=== PATIENT | female | born 1975 | race Caucasian/White ===

== ENCOUNTER → 2016-09-24 | Outpatient (CLI) | payer OTHER ==
[~2016-09-24] MED LIST: BUPR-197 PO; NAPR550 PO; PHEN37.5 PO; PHEN37.52 PO
--- NOTE | 2016-09-25 14:17 | EKG ---
Date Performed: 09/24/2016 Time Performed: 13:10:36 PTAGE: 40 years EKG: Sinus rhythm NORMAL ECG NO PREVIOUS TRACING DOCTOR: Escobar Salguero Interpretating Date/Time 09/25/2016 14:16:56
== END ==
LOC: CPRE 12:53
PROVIDERS: ATTEND Obstetrics & Gynecology
DX: Z01.810 Encounter for preprocedural cardiovascular examination (principal); N92.0 Excessive and frequent menstruation with regular cycle; N94.6 Dysmenorrhea, unspecified; D39.0 Neoplasm of uncertain behavior of uterus; N83.01 Follicular cyst of right ovary
CPT/HCPCS: 93005

== ENCOUNTER 2016-09-30 12:14 | Observation (INO) | payer OTHER ==
--- NOTE | 2016-09-29 08:52 | MH ---
cc: MITUL MALHOTRA DATE OF ADMISSION 09/30/2016 ADMISSION DIAGNOSIS Dysmenorrhea with uterine fibroids and recurrent menorrhagia. HISTORY OF PRESENT ILLNESS The patient is a 40-year-old white female para 2-0-0-2 who had tubal ligation and endometrial inflation in May of 2015. She had a temporary reduction in menstrual flow, but persistent dysmenorrhea. Her laboratory studies from 08/19/16 were normal. Her vaginal ultrasound from 08/19/16 showed a uterus that measured 9.5 cm with lower uterine fibroids. The ovaries showed a small cyst on the right, left was normal. She is now admitted for hysterectomy. ADDITIONAL PAST MEDICAL HISTORY 1. T&A in childhood 2. third molars 3. LEEP procedure in 1995. MEDICATIONS Medications are Vitamins. ALLERGIES CIPRO TRANSFUSIONS None OBSTETRICAL HISTORY One vaginal delivery in 2007 and with tubal in 2010. SOCIAL HISTORY She is works for the [employer]. She is . Alcohol occasional, tobacco none, drugs none. FAMILY HISTORY Her family history is noncontributory. PHYSICAL EXAM This is a well-nourished well-developed white female. VITAL SIGNS: Stable. HEENT: Exam is normal. CHEST: Clear. HEART: Regular rate. BREASTS: Symmetrical. ABDOMEN: Benign. PELVIC: Normal external genitalia and BUS. Vagina is normal cervix is normal. Uterus is about 12 weeks' size. Adnexa nonpalpable. ASSESSMENT As above. PLAN She is admitted for laparoscopy with planned LASH procedure with ovarian and cervical sparing if normal. While in the office, I explained the procedures, the risks, benefits and complications and the patient would like to proceed. MD ISABELL Meneses/STAN /8:26 AM /8:41 AM
[~2016-09-30] VITALS: Ht 154.9 cm; Wt 99.7 kg
[~2016-09-30 12:14] MED LIST changes: +BUPIVACAINE LIPOSOME PF 1.3% 20 ML VIAL ONE; -BUPR-197 PO; +KETOROLAC TROMETHAMINE 60 MG/2 ML (IM) VIAL IM ONE; +LACTATED RINGER'S 1000 ML INJ 2,000 ML IV ONE; -NAPR550 PO; +NEOSTIGMINE 3 MG/3 ML SYR IV ONE; +ONDANSETRON HCL 4 MG/2 ML VIAL IV PUSH ONE; -PHEN37.5 PO; +PHENYLEPH/NS 1000 MCG/10 ML SYR IV ONE; +PROPOFOL 200 MG/20 ML AMP IV ONE; +ePHEDrine/NS 25 MG/5 ML SYR IV ONE
[2016-09-30] MEDS ORDERED: POVIDONE IODINE 5% (ANTISEPSIS KIT) 4 APPLICATIONS EACH NARE PRN (12:45)
[2016-09-30] MEDS ORDERED: INSULIN HUMAN REGULAR 1,000 UNITS/10 ML VIAL SQ PRN (12:45)
[2016-09-30] MEDS ORDERED: METOPROLOL TARTRATE 25 MG TAB PO PRN (12:45)
[2016-09-30] MEDS ORDERED: SODIUM CHLORID 0.9% 500 ML IV PRN (12:45)
[2016-09-30] MEDS ORDERED: CHLORHEXIDINE GLUCONATE 2 % 1 PACK (2 CLOTHS) TOPICAL PRN (12:45)
[2016-09-30] MEDS ORDERED: LACTATED RINGER'S 1000 ML IV PRN (12:45)
[2016-09-30 12:57] VITALS: BP 143/77; PULSE 76; RESP 20; TEMP 98.7; O2SAT 98
[2016-09-30] MEDS ORDERED: ceFAZolin 2 GM PREMIX 50 ML IV SCH (13:00)
[2016-09-30] MEDS ORDERED: ACETAMINOPHEN 1000 MG/100 ML VIAL IV SCH (13:00)
[2016-09-30] MEDS ORDERED: BUPIVACAINE/EPINEPHRINE 0.5% PF 30 ML VIAL ONE (14:04)
[2016-09-30] MEDS ORDERED: FAMOTIDINE 20 MG/2 ML VIAL ONE (14:32)
[2016-09-30] MEDS ORDERED: MIDAZOLAM HCL 2 MG/2 ML VIAL ONE (14:32)
[2016-09-30] MEDS ORDERED: APREPITANT 40 MG CAP ONE (14:32)
[2016-09-30] MEDS ORDERED: DEXAMETHASONE SOD PHOS 4 MG/ML VIAL ONE (14:32)
[2016-09-30] MEDS ORDERED: SODIUM CHLORIDE 0.9% FLUSH 5 ML FLUSH FLUSH PRN (16:45)
[2016-09-30] MEDS: KETOROLAC TROMETHAMINE 30 MG/ML (IVP) VIAL IVP SCH (16:45)
[2016-09-30] MEDS ORDERED: DO NOT ADM ANY ANTICOAGULANT DRUGS PRN (17:04)
[2016-09-30] MEDS ORDERED: fentaNYL CITRATE 250 MCG/5 ML AMP ONE (17:08)
[2016-09-30] MEDS ORDERED: *morphine SULFATE 8 MG/ML PERIprocedure ONLY ONE (17:26)
[2016-09-30] MEDS: D5-1/2 NS + KCL 20 MEQ INJ 1,000 ML IV SCH (17:35)
[2016-09-30] MEDS: ACETAMINOPHEN 1000 MG/100 ML VIAL IV SCH (17:41)
[2016-09-30] MEDS ORDERED: HYDROmorphone HCL PF 1 MG/ML VIAL IV PRN (18:00)
[2016-09-30] MEDS ORDERED: diphenhydrAMINE HCL 25 MG CAP PO PRN (18:00)
[2016-09-30] MEDS ORDERED: hydrOXYzine PAMOATE 25 MG CAP PO PRN (18:00)
[2016-09-30] MEDS ORDERED: PROMETHAZINE HCL 25 MG TAB PO PRN (18:00)
[2016-09-30] MEDS ORDERED: ZOLPIDEM TARTRATE 5 MG TAB PO PRN (18:00)
[2016-09-30] MEDS ORDERED: ONDANSETRON HCL 4 MG/2 ML VIAL IV PRN (18:00)
[2016-09-30] MEDS ORDERED: ONDANSETRON ODT 4 MG TAB PO PRN (18:00)
[2016-09-30] MEDS ORDERED: *ONDANSETRON 4 MG VIAL PERIprocedural Use ONLY ONE (18:09)
[2016-09-30 18:13] LABS: HEMATOCRIT 34.6 % (35.0-46.0); REVIEW FLAG FINAL
[2016-09-30 18:30] VITALS: O2SAT 96
[2016-09-30 20:00] VITALS: BP 109/68; PULSE 65; RESP 18; TEMP 98
[2016-09-30] MEDS: DOCUSATE SODIUM 100 MG CAP PO SCH (20:16)
[2016-09-30] MEDS ORDERED: SODIUM CHLORIDE 0.9% FLUSH 5 ML FLUSH FLUSH SCH (21:00)
[2016-10-01 00:20] VITALS: BP_SYST 105; BP_SYST 109; BP_DIAS 66; BP_DIAS 68; PULSE 65; RESP 16; TEMP 98
[2016-10-01] MEDS: KETOROLAC TROMETHAMINE 30 MG/ML (IVP) VIAL IVP SCH ×2 (00:32→07:18)
[2016-10-01] MEDS: D5-1/2 NS + KCL 20 MEQ INJ 1,000 ML IV SCH (01:40)
[2016-10-01] MEDS: ACETAMINOPHEN 1000 MG/100 ML VIAL IV SCH (01:47)
[2016-10-01 03:56] VITALS: BP 104/69; PULSE 64; RESP 18; TEMP 98.2
[2016-10-01 05:59] LABS: AUTOMATED NEUTROPHIL # 11.5 TH/MM3 (1.8-7.7); BASOPHIL % 0.1 % (0.0-2.0); EOSINOPHIL % 0.1 % (0.0-4.0); HEMATOCRIT 30.8 % (35.0-46.0); HEMO FLAGS DIFF FINAL; LYMPH % 5.8 % (9.0-44.0); LYMPHOCYTE # 0.8 TH/MM3 (1.0-4.8); MEAN CELL VOLUME 87.3 FL (80.0-100.0); MEAN CORPUSCULAR HEMOGLOBIN 29.6 PG (27.0-34.0); MEAN CORPUSCULAR HGB CONC 33.9 % (32.0-36.0); MONO % 5.2 % (0.0-8.0); NEUT % 88.8 % (16.0-70.0); PLATELET COUNT 208 TH/MM3 (150-450); RED BLOOD COUNT 3.53 MIL/MM3 (4.00-5.30); RED CELL DISTRIBUTION WIDTH 12.3 % (11.6-17.2)
[2016-10-01 06:21] LABS: BICARBONATE 23.2 MEQ/L (21.0-32.0); POTASSIUM 4.3 MEQ/L (3.5-5.1)
[2016-10-01] MEDS: DOCUSATE SODIUM 100 MG CAP PO SCH (07:17)
[2016-10-01 08:00] VITALS: BP 108/67; PULSE 80; RESP 18; TEMP 98.2
--- NOTE | 2016-10-01 08:23 | HHI.DCPOC ---
Discharge Care Plan Report Symptoms to Your Doctor -Temperature above 100.5 degrees -Redness, of incision or excessive or foul smelling drainage -Unusual pain or calf pain -Increased vaginal bleeding -Painful or difficulty urinating -Feelings of extreme sadness or anxiety after 2 weeks Goals to Promote Your Health * To prevent worsening of your condition and complications * To maintain your health at the optimal level Directions to Meet Your Goals Take your medications as prescribed Follow your dietary instruction Follow activity as directed Ensure plenty of rest for recovery Drink fluids for hydration Keep your appointments as scheduled Take your immunizations and boosters as scheduled If your symptoms worsen call your PCP, if no PCP go to Urgent Care Center or Emergency Room Smoking is Dangerous to Your Health. Avoid second hand smoke Call the 24-hour crisis hotline for domestic abuse at Byron Jaime MD Oct 01, 2016 08:23
--- NOTE | 2016-10-02 13:58 | MP ---
cc: MITUL MALHOTRA DATE OF SURGERY: 09/30/2016 PREOPERATIVE DIAGNOSIS Dysmenorrhea with uterine fibroids. POSTOPERATIVE DIAGNOSIS Dysmenorrhea with uterine fibroids. PROCEDURE LASH, bilateral salpingectomy. ANESTHESIA General endotracheal. SURGEON Mitul Malhotra MD MARINE DRAFTER BEN Prince ESTIMATED BLOOD LOSS 200 cc. FLUIDS 1.6 liters crystalloid. OBJECTIVE FINDINGS Following the induction of adequate general endotracheal anesthesia the patient was prepped and draped supine on the operating table in the dorsal lithotomy position in the usual sterile fashion with the bladder being drained via Saha catheterization. The abdomen was opened through a 3 cm curving infraumbilical incision using a knife to cut down from the skin to the fascia. The fascia was opened transversely. The rectus muscle was split in the midline and the peritoneum opened sharply. Palpation was normal. A GelPort was placed, laparoscope inserted. A 5 port was placed in the left lower quadrant and an Airsealport in the right lower quadrant. The uterus was about 12 weeks' size with fibroids. Both tubes showed interruption. The ovaries were normal. The cul-de-sacs were clear. Working first on the left a Harmonic scalpel was used to take the left uteroovarian pedicle, left round ligament, left broad ligament, left side of the bladder flap and uterine vessels, the same on the right. A harmonicscalpel was now used to amputate the fundus from the cervix and the fundus inserted into a pouch and extracted through the GelPort site intact. Residual tube remnants were removed with the Harmonic scalpel and extracted through the GelPort. Irrigation was performed. One area of bleeding on the right broad ligament was sutured with 2-0 Vicryl quill stitch. The ureters were inspected with good peristalsis. There was No further bleeding. Low pressures were done with no bleeding. The operative site was coated with Evicel. The GelPort was removed. The peritoneum was sutured with running 2-0 Vicryl, the fascia with a running locking stitch of 0 Vicryl, subcu with running 3-0 Vicryl and skin with running subcuticular 3-0 Monocryl. Dermabond was applied. The scope was now reinserted in the lower ports and inspected. The GelPort site was well-closed. No operative bleeding was seen. The scope was removed, gas was allowed to escape. The small wounds were closed with 3-0 Monocryl. Dermabond was applied. All counts were correct. The patient's legs were taken out of the stirrups. She was awakened and taken to the recovery room in good condition. MD ISABELL Meneses/FREDDIE /9:01 PM /1:45 PM MTDD
== END 2016-10-01 09:49 | disposition home or self-care (01) ==
LOC: HSDC 12:14 → HSDI 16:42 → H1EA 18:45
PROVIDERS: ADMIT Obstetrics & Gynecology; ATTEND Obstetrics & Gynecology
DX: D25.9 Leiomyoma of uterus, unspecified (principal); N92.0 Excessive and frequent menstruation with regular cycle; N94.6 Dysmenorrhea, unspecified; Z88.1 Allergy status to other antibiotic agents
CPT/HCPCS: 58542; 80048; 85014; 85018; 85025; 88307; 96374; 96375; 96376; C9290; G0378; J0131; J0690; J1100; J1170; J1885; J2250; J2270; J2370; J2405; J2710; J3010; J3480; J7120; J8501